=== PATIENT | male | born 1980 | race Caucasian/White ===

== ENCOUNTER 2021-03-06 04:04 | Emergency (ER) | payer BC ==
[2021-03-06 04:59] LABS: HEMOGLOBIN 15.3 gm/dl (14.0-17.5); RED BLOOD COUNT 5.32 M/UL (4.20-5.50); WHITE BLOOD COUNT 6.8 K/UL (4.5-11.0)
[2021-03-06 05:51] LABS: BUN/CREATININE RATIO 14 (0-10)
== END 2021-03-06 08:13 | disposition home or self-care (01) ==
LOC: ER1 04:04
PROVIDERS: Physician Assistant
DX: U07.1 COVID-19 (principal); J12.82 Pneumonia due to coronavirus disease 2019; Z88.1 Allergy status to other antibiotic agents; I51.9 Heart disease, unspecified; I25.2 Old myocardial infarction; K21.9 Gastro-esophageal reflux disease without esophagitis
CPT/HCPCS: 0240U; 36600; 71045; 80053; 81001; 82550; 82553; 82803; 83605; 83735; 83880; 84100; 84484; 85025; 85610; 85652; 85730; 86140; 87040; 87086; 93005; 96374; 99285; J1100; J7030; Q9967

== ENCOUNTER → 2021-03-08 | Outpatient (CLI) | payer BC ==
[~2021-03-08] VITALS: Ht 177.8 cm; Wt 99.8 kg
== END ==
LOC: EROP 11:43
DX: U07.1 COVID-19 (principal); Z23 Encounter for immunization; I25.2 Old myocardial infarction
CPT/HCPCS: M0247; Q0247